=== PATIENT | male | born 1995 | race Caucasian/White ===

== ENCOUNTER 2018-12-19 00:09 | Emergency (ER) | payer OTHER, SELFPAY | END 2018-12-19 00:50 | disposition home or self-care (01) | LOC: MADERS 00:09 | DX: J02.9 Acute pharyngitis, unspecified (principal); R22.0 Localized swelling, mass and lump, head; F17.200 Nicotine dependence, unspecified, uncomplicated | CPT/HCPCS: 99283 ==

== ENCOUNTER 2024-05-04 23:14 | Emergency (ER) | payer SELFPAY ==
[2024-05-04] MEDS ORDERED: Clindamycin 150 MG CAP ONE (23:54)
== END 2024-05-04 23:58 | disposition home or self-care (01) ==
LOC: MADERS 23:14
DX: K08.89 Other specified disorders of teeth and supporting structures (principal); F17.210 Nicotine dependence, cigarettes, uncomplicated
CPT/HCPCS: 99282